=== PATIENT | male | born 1965 | race Caucasian/White ===

== ENCOUNTER → 2020-08-01 10:49 | Outpatient (CLI) | payer SELFPAY ==
--- NOTE | 2020-08-01 10:54 | RAD_ITS ---
STUDY: X-RAY - RIGHT FOOT CLINICAL: Right foot pain, no specific injury. TECHNIQUE: 3 view(s) of the foot. COMPARISON: None. FINDINGS: Normal talus, calcaneus, and tarsal bones. Normal visualized subtalar, talonavicular, calcaneocuboid, tarsal and tarsometatarsal articulations. There is a small ossicle at the lateral aspect of the first metatarsal head on the AP view. There is cystic change/erosion of the medial aspect of the first metatarsal head without joint space narrowing of the metatarsophalangeal joint of the great toe. There is mild hallux valgus deformity. There are bipartite tibial and fibular sesamoid bones. Normal interphalangeal joint of the great toe. Normal phalanges of the great toe. Normal second through fifth metatarsophalangeal joints. Normal interphalangeal joints and phalanges of the lesser toes. The soft tissue structures are unremarkable. RAD/Foot min 3 Views IMPRESSION: Cystic change/erosion of the medial aspect of the first metatarsal head. Small ossicle at the lateral aspect of the first metatarsal head. Mild hallux valgus deformity. Electronically Signed: Jay Ribera MD at 11:49 EST Tel , Service support ,
[2020-08-01 12:43] LABS: Uric Acid 7.7 mg/dL (3.5-7.2)
== END ==
PROVIDERS: Referring Provider Podiatrist; Visit Provider Podiatrist
DX: M20.11 Hallux valgus (acquired), right foot (principal); M10.9 Gout, unspecified
CPT/HCPCS: 36415; 73630; 84550